=== PATIENT | male | born 1990 | race American Indian/Alaskan Native ===

== ENCOUNTER 2017-12-05 23:36 | Emergency (ER) | payer SELFPAY ==
[2017-12-06 00:58] VITALS: BP 133/89
== END 2017-12-06 03:55 | disposition left against medical advice (07) ==
LOC: ED 23:36
DX: R21 Rash and other nonspecific skin eruption (principal); Z53.21 Procedure and treatment not carried out due to patient leaving prior to being seen by health care provider